=== PATIENT | female | born 1965 | race Caucasian/White ===

== ENCOUNTER 2016-09-27 08:31 | Day surgery (SDC) | payer OTHER ==
[~2016-09-27] VITALS: Ht 152.4 cm; Wt 54.5 kg
[~2016-09-27 08:31] MED LIST: 0.9% Sodium Chloride 1,000 ML IV SCH; ASCO500C6 PO; CHOL10008 PO; IBUP-1827 PO; Sodium Chloride LOK Flush 10 mL Syringe IV PRN; fentaNYL-PF 50 mCg/mL 2 mL Inj IVPUSH PRN
[2016-09-27 08:47] VITALS: BP 134/82; PULSE 56; RESP 14; O2SAT 99
[2016-09-27 10:45] VITALS: BP 126/67; PULSE 71; RESP 17; O2SAT 96
[2016-09-27 10:55] VITALS: BP 112/62; PULSE 65; RESP 17; O2SAT 98
[2016-09-27 11:04] VITALS: BP 117/68; PULSE 75; RESP 17; O2SAT 98
--- NOTE | 2016-09-27 21:51 | ENDO ---
[address] [address] ENDOSCOPY PROCEDURE PATIENT: LARRY LOWRY : 1965 MR#: [id number] ADMIT: 09/27/2016 JOB ID: [id number] DATE OF PROCEDURE: 09/27/2016 PRIMARY PROVIDER: Trupti Felipe MD. PROCEDURE: Colonoscopy. INDICATIONS: A 51-year-old female who reports for colon cancer screening. EQUIPMENT: [employer]. SEDATION: 1. Versed 4 mg. 2. Fentanyl 75 mcg. COMPLICATIONS: None identified. BOWEL PREPARATION: Fair, adequate exam. PROCEDURE INFORMATION: After the risks and benefits were explained, written and verbal informed consent was obtained. The patient was brought into the endoscopy suite and placed into the left lateral decubitus position. Sedation was achieved using the above-stated medications with the addition of oxygen via nasal cannula. A digital rectal examination was accomplished. No significant pathology apart from some mild internal hemorrhoids noted. The scope was introduced into the rectum and advanced under direct visualization to the cecum, as identified by the appendiceal orifice and ileocecal valve. The scope was slowly withdrawn to carefully examine the mucosa for any defects or lesions. Retroflexed views were avoided in the rectum. Multiple direct views were made through the dentate line for exclusion of pathology. The colon was decompressed. The scope was removed from the patient who tolerated the procedure well. FINDINGS: No significant polyp pathology identified throughout. No significant polyps, mass lesions, or inflammatory features. ENDOSCOPIC DIAGNOSES: Visually unremarkable colonoscopy to cecum. RECOMMENDATIONS: Repeat colonoscopy in 10 years' time, sooner should symptoms warrant.
== END 2016-09-27 23:59 | disposition home or self-care (01) ==
LOC: END 08:31
PROVIDERS: ATTEND Internal Medicine Gastroenterology
DX: Z12.11 Encounter for screening for malignant neoplasm of colon (principal); K64.8 Other hemorrhoids; K21.9 Gastro-esophageal reflux disease without esophagitis; F41.9 Anxiety disorder, unspecified; G47.9 Sleep disorder, unspecified
CPT/HCPCS: 99153; G0121; G0500; J2250; J3010; J7030